=== PATIENT | female | born 1945 | race African-American/Black ===

== ENCOUNTER 2017-10-23 16:39 | Emergency (ER) | payer OTHER ==
[2017-10-23 16:58] VITALS: BP 138/68; PULSE 66; TEMP 97.7; BMI 24.7
[2017-10-23] MEDS ORDERED: CYCLOBENZAPRINE HCL 10 MG TABLET (FP) PO ONE (16:59)
--- NOTE | 2017-10-23 16:59 | PDOC ---
Rapid Medical Evaluation Time Seen by Provider: 10/23/17 16:54 Medical Evaluation: Allergies Allergy/AdvReac Type Severity Reaction Status Date / Time Penicillins Allergy Rash Verified 12/17/13 16:27 10/23/17 16:54 I have performed a brief in-person evaluation of the patient. The patient presents with a chief complaint of : left lower back pain after lifting a bucket of laundry Saturday patient states pain getting worse daily and not relieved by tylenol Denies dysuria. Pertinent physical exam findings. NAD unlabored breathing no mid spinal tenderness +tenderness over left lower lumbar region I have ordered the following urinalysis, analgesia This patient will proceed to the ED for further evaluation.
[2017-10-23] MEDS ORDERED: diazePAM 2 MG TABLET PO ONE (17:30)
--- NOTE | 2017-10-23 17:30 | PDOC ---
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 Patient states she bent down to left when she stood up she felt the sharp stabbing pain in her left lower back which is nonradiating. Patient is applied hot packs and is taking nonsteroidal medication with minimal relief of symptoms. Denies any numbness or tingling to genitals, rectum, lower extremities. She denies incontinence of bladder and bowel. Past History - Past Medical History Allergies/Adverse Reactions: Allergies Allergy/AdvReac Type Severity Reaction Status Date / Time Penicillins Allergy Rash Verified 10/23/17 16:54 Home Medications: Ambulatory Orders Aspirin [Aspirin EC] 81 mg PO DAILY 12/17/13 Cyclobenzaprine HCl [Flexeril 10 mg] 10 mg PO BID PRN #20 tablet 10/23/17 CVA: No (tia x 2) HTN: Yes Hypercholesterolemia: Yes - Surgical History Appendectomy: Yes - Suicide/Smoking/Psychosocial Hx Smoking History: Never smoked Have you smoked in the past 12 months: No Hx Alcohol Use: No Drug/Substance Use Hx: No Substance Use Type: None Hx Substance Use Treatment: No Review of Systems - Review of Systems Able to Perform ROS?: Yes Is the patient limited Frisian proficient: No Constitutional: No: Symptoms Reported HEENTM: No: Symptoms Reported Respiratory: No: Symptoms reported Cardiac (ROS): No: Symptoms Reported ABD/GI: No: Symptoms Reported : No: Symptoms Reported Musculoskeletal: Yes: See HPI Integumentary: No: Symptoms Reported Neurological: No: Symptoms reported Endocrine: No: Symptoms Reported Hematologic/Lymphatic: No: Symptoms Reported *Physical Exam - Vital Signs Last Vital Signs Temp Pulse Resp BP Pulse Ox 97.7 F 66 20 138/68 100 10/23/17 16:54 10/23/17 16:54 10/23/17 16:54 10/23/17 16:54 10/23/17 16:54 - Physical Exam General Appearance: Yes: Appropriately Dressed. No: Apparent Distress Musculoskeletal: positive: Normal Inspection, Muscle Spasm (left paraspinous). negative: CVA Tenderness Neurologic: positive: Alert, Normal Response. negative: Numbness Medical Decision Making - Medical Decision Making 10/23/17 17:33 A/P: 72-year-old woman with left lower back pain status post heavy lifting Muscle spasm in the left paraspinous muscle medially superior to the iliosacral joint No vertebral tenderness on palpation Able to perform straight leg raises without difficulty Passive range of motion of bilateral hips without difficulty UA, Flexeril, Valium, reassess 10/23/17 19:02 Urinalysis with 1+ blood and trace leuk esterase. Patient is free of pain after receiving Flexeril and Valium. I will discharge the patient home with prescription for Flexeril and instructions to take NSAID medication to relieve her pain. Patient verbalizes understanding of discharge instructions. *DC/Admit/Observation/Transfer Diagnosis at time of Disposition: Muscle spasm of back - Discharge Dispostion Disposition: HOME Condition at time of disposition: Stable Decision to Admit order: No - Prescriptions Prescriptions: Cyclobenzaprine HCl [Flexeril 10 mg] 10 mg PO BID PRN #20 tablet PRN Reason: Back Pain - Referrals Referrals: Philip Shi MD [Primary Care Provider] - - Patient Instructions Additional Instructions: Rest, no heavy lifting or exercise until pain is resolved Hot soaks to neck and low back as often as possible/hot showers or Jacuzzis No massage or therapy until spasm is gone Continue ibuprofen 2-200 mg tablets every 6 hours for the next 3 days then as needed for pain and swelling Flexeril 10 mg every 8 hours as needed for spasm If not significant improvement within 24 hours with medication and rest regime, followup with private physician for change in medications and /or therapy. - Post Discharge Activity
[2017-10-23] MEDS ORDERED: diazePAM 2 MG TABLET ONE (17:44)
[2017-10-23] MEDS ORDERED: CYCLOBENZAPRINE HCL 10 MG TABLET (FP) ONE (17:44)
[2017-10-23 18:59] LABS: URINE APPEARANCE CLEAR; URINE BILIRUBIN NEGATIVE (<2.0 mg/dL); URINE COLOR STRAW; URINE GLUCOSE (UA) NEGATIVE (NEGATIVE); URINE KETONE NEGATIVE (NEGATIVE); URINE LEUK ESTERASE TRACE (NEGATIVE); URINE NITRITE NEGATIVE (NEGATIVE); URINE PROTEIN NEGATIVE (NEGATIVE); URINE UROBILINOGEN NEGATIVE mg/dL (0.2-1.0)
[2017-10-23 19:45] LABS: URINE MUCUS RARE
== END 2017-10-23 19:06 | disposition home or self-care (01) ==
LOC: JERFT 16:39
DX: M62.830 Muscle spasm of back (principal); I10 Essential (primary) hypertension; E78.00 Pure hypercholesterolemia, unspecified
CPT/HCPCS: 81003; 81015; 99281-25